=== PATIENT | female | born 1930 | race Caucasian/White ===

== ENCOUNTER 2016-10-18 20:45 | Emergency (ER) | payer MEDICARE, BC ==
[~2016-10-18] VITALS: Ht 165.1 cm; Wt 105.0 kg
[~2016-10-18 20:45] MED LIST: ACTONEL35 MG OR; ADVAIR DISKU IN; ALBUTEROL SUL0.083 % IN; ALBUTEROL0.083 % IN; ALBUTEROL0.5 % IN; ASPIRIN EC81 MG PO; AVAPRO300 MG OR; AVELOX400 MG OR; BACTRIM DS1 TAB PO; CALCIUM600 M2 PO; CIPRO500 MG OR; CLARITIN10 MG OR; GLYBURIDE2.5 MG OR; LANTUS100 MG/ML SC; LASIX 20 MG TAB20 MG PO; LIPITOR20 MG OR; LOPRESSOR50 MG OR; LOSARTAN POT100 MG PO; MEDDOSEPAK PO; METFORMIN500 M1 OR; METOPROLOL50 MG OR; NIFEDICAL XL30 MG OR; PROAIR HFA IN; PROVENTIL INH17 GM IN; RANITIDINE150 MG OR; THEO-24200 MG OR; THEO-24400 MG OR; ULTRAM50 M1 PO; ZANTAC150 MG OR
--- NOTE | 2016-10-18 21:27 | NUR ---
BREATHING TREATMENT GIVEN. EXPLANATION GIVEN IN HOW TO BREATH DEEPLY FOR GOOD DEPOSITION TO THE LUNGS.
[2016-10-18 21:30] LABS: HEMATOCRIT 36.9 % (37.0-47.0); IMMATURE GRANULOCYTES 0.4 % (0.0-1.0); MEAN CELL VOLUME 85.2 fL CALC (80.0-100.0); MEAN CORPUSCULAR HGB 27.7 pG CALC (26.0-32.0); MEAN CORPUSCULAR HGB CONC 32.5 g/L CALC (32.0-36.0); NEUT# 6.82 thou/uL (2.00-7.15); RED BLOOD COUNT 4.33 mill/uL (4.20-5.60); RED CELL DISTRI WIDTH 13.9 % (11.5-15.5)
[2016-10-18 21:48] LABS: ALBUMIN 3.9 g/dL (3.2-5.0); ALKALINE PHOSPHATASE 69 u/l (38-126); ANION GAP 15 (6-22 (CALC)); BILIRUBIN, TOTAL 0.8 mg/dL (0.0-1.4); BUN 23 mg/dL (8-23); BUN/CREATININE RATIO 27 (12-20 (CALC)); CALCIUM 9.1 mg/dL (8.4-10.2); CARBON DIOXIDE 24 mmol/l (22-30); CHLORIDE 99 mmol/l (95-108); CREATININE 0.9 mg/dL (0.5-1.0); GFR 60 ML/MIN (>=60 (CALC)); GFR FOR AFR.AMER. > 60 ML/MIN (>=60 (CALC)); GLUCOSE 338 mg/dL (82-115); INTERNATIONAL NORMALIZED RATIO 0.9 RATIO (0.7-1.3); POTASSIUM 4.9 mmol/l (3.5-5.1); PROTHROMBIN TIME 10.2 SECONDS (9.0-12.5); SGOT/AST 27 u/l (9-36); SGPT/ALT 26 u/l (11-66); SODIUM 133 mmol/l (137-146); TOTAL PROTEIN 7.4 g/dL (6.3-8.2)
[2016-10-18 22:01] LABS: MYOGLOBIN 53 ng/mL (0 - 62)
[2016-10-18 22:04] LABS: URINE BILIRUBIN - DIPSTICK NEGATIVE (NEGATIVE); URINE BLOOD DIPSTICK NEGATIVE (NEGATIVE); URINE COLOR YELLOW; URINE GLUCOSE - DIPSTICK 500 mg/dL (NEGATIVE); URINE KETONE TRACE mg/dL (NEGATIVE); URINE NITRITE - DIPSTICK NEGATIVE (Negative); URINE PROTEIN - DIPSTICK 30 mg/dL (NEG-TRACE); URINE UROBILINOGEN - DIPSTICK 0.2 E.U./dL (0.2)
[2016-10-18 22:06] LABS: URINE CLARITY SLIGHT CLOUDY; URINE LEUK ESTERASE MODERATE (NEGATIVE)
[2016-10-18 22:14] LABS: URINE SQUAMOUS EPITHELIAL CELL MODERATE EPI/hpf (0-FEW); URINE WBC 20-50 WBC/hpf (0-5)
[2016-10-18] MEDS ORDERED: CEPHALEXIN500 MG PO (23:26)
[2016-10-19 00:09] VITALS: BP 139/70
== END 2016-10-19 00:02 | disposition home or self-care (01) ==
LOC: ED 20:45
PROVIDERS: Emergency Medicine
DX: N39.0 Urinary tract infection, site not specified (principal); J44.9 Chronic obstructive pulmonary disease, unspecified; J45.909 Unspecified asthma, uncomplicated; I11.0 Hypertensive heart disease with heart failure; I50.9 Heart failure, unspecified; E11.9 Type 2 diabetes mellitus without complications; R06.02 Shortness of breath

== ENCOUNTER 2016-10-24 13:28 | Observation (INO) | payer MEDICARE, BC ==
[~2016-10-24] VITALS: Ht 165.1 cm; Wt 85.3 kg
[~2016-10-24 13:28] MED LIST changes: +CEPHALEXIN500 MG PO
--- NOTE | 2016-10-24 13:44 | NUR ---
PT ARRIVES BY EMS FOR INCREASED SOB LATELY. SHE DOES NOT WEAR OXYGEN AT HOME.
[2016-10-24 14:48] LABS: HEMATOCRIT 38.8 % (37.0-47.0); HEMOGLOBIN 12.5 g/dl (12.0-16.0); IMMATURE GRANULOCYTES 0.3 % (0.0-1.0); MEAN CORPUSCULAR HGB 27.7 pG CALC (26.0-32.0); MEAN CORPUSCULAR HGB CONC 32.2 g/L CALC (32.0-36.0); NEUT# 7.73 thou/uL (2.00-7.15); RED BLOOD COUNT 4.51 mill/uL (4.20-5.60); RED CELL DISTRI WIDTH 14.1 % (11.5-15.5)
--- NOTE | 2016-10-24 14:54 | NUR ---
PT IS UNABLE TO PROVIDE LIST OF MEDICATIONS AND LAST TIME THAT SHE TOOK THEM. PT DEFERS THIS TO HER DAUGHTER, WHO HAS NOT APPEARED HERE YET.
[2016-10-24 15:08] LABS: ALBUMIN 3.8 g/dL (3.2-5.0); ALKALINE PHOSPHATASE 78 u/l (38-126); ANION GAP 17 (6-22 (CALC)); BILIRUBIN, TOTAL 0.5 mg/dL (0.0-1.4); BUN 28 mg/dL (8-23); BUN/CREATININE RATIO 31 (12-20 (CALC)); CALCIUM 9.4 mg/dL (8.4-10.2); CARBON DIOXIDE 27 mmol/l (22-30); CHLORIDE 98 mmol/l (95-108); CREATININE 0.9 mg/dL (0.5-1.0); GFR 60 ML/MIN (>=60 (CALC)); GFR FOR AFR.AMER. > 60 ML/MIN (>=60 (CALC)); GLUCOSE 389 mg/dL (82-115); POTASSIUM 4.8 mmol/l (3.5-5.1); SGOT/AST 21 u/l (9-36); SGPT/ALT 25 u/l (11-66); SODIUM 137 mmol/l (137-146); TOTAL PROTEIN 6.6 g/dL (6.3-8.2)
[2016-10-24 15:21] LABS: MYOGLOBIN 66 ng/mL (0 - 62)
[2016-10-24 15:29] LABS: URINE BILIRUBIN - DIPSTICK NEGATIVE (NEGATIVE); URINE BLOOD DIPSTICK NEGATIVE (NEGATIVE); URINE CLARITY CLEAR; URINE COLOR YELLOW; URINE GLUCOSE - DIPSTICK >=1000 mg/dL (NEGATIVE); URINE KETONE TRACE mg/dL (NEGATIVE); URINE LEUK ESTERASE NEGATIVE (NEGATIVE); URINE NITRITE - DIPSTICK NEGATIVE (Negative); URINE PH 5.5 (4.5-8.0); URINE PROTEIN - DIPSTICK TRACE mg/dL (NEG-TRACE); URINE UROBILINOGEN - DIPSTICK 0.2 E.U./dL (0.2)
--- NOTE | 2016-10-24 16:16 | NUR ---
PT AWARE OF PENDING ADMISSION, RESTS IN THE STRETCHER IN NO ACUTE DISTRESS. PHONE CALLS TO DTR AND GRANDDAUGHTER UNANSWERED, UNABLE TO RECONCILE MEDICATION RECONCILIATION.
--- NOTE | 2016-10-24 16:38 | NUR ---
PTS DAUGHTER WILL GET HOME MEDICATION LIST.
--- NOTE | 2016-10-24 16:49 | NUR ---
PT TAKEN TO ROOM 280 WITHOUT INCIDENT, REPORT WAS TO KARLI.
[2016-10-24 16:57] VITALS: BP 141/79
[2016-10-24] MEDS ORDERED: LASIX 20 MG20 MG/TAB PO (17:33)
[2016-10-24] MEDS ORDERED: CALCIUM600 M3 PO (17:33)
[2016-10-24] MEDS ORDERED: ASPIRIN81 MG PO (17:33)
[2016-10-24] MEDS ORDERED: LIPITOR20 MG PO (17:33)
--- NOTE | 2016-10-24 17:33 | NUR ---
REPORT FROM PREMA IN ED, PT ARRIVED ON UNIT VIA STRETCHER AND TRANSFERRED TO BED, ALERT AND ORIENTED TO PLACE AND PERSON, ORIENTED TO ROOM AND CALL [facility], DENIES PAIN AT THIS TIME, C/O OF BEING HUNGRY, FED, TELE MONITOR IN PLACE, WILL CONTINUE TO MONITOR.
[2016-10-24] MEDS ORDERED: RANITIDINE150 M1 PO (17:34)
[2016-10-24] MEDS ORDERED: LOSARTAN POTASS50 MG PO (17:34)
[2016-10-24] MEDS ORDERED: LANTUS100 UNIT/M SC (17:35)
--- NOTE | 2016-10-24 17:35 | NUR ---
PT'S DAUGHTER CALLED WITH MED LIST. HOME MEDICATIONS RECONCILED
[2016-10-24 18:52] VITALS: BP 117/64
--- NOTE | 2016-10-24 19:00 | NUR ---
RECEIVED SHIFT REPORT FROM DICK CALVILLO. PATIENT LAYING IN BED AND APPEARS NOT TO BE IN ANY ACUTE DISTRESS OR DISCOMFORT. WILL CONTINUE TO MONITOR.
--- NOTE | 2016-10-24 22:00 | NUR ---
ASSISTED PATIENT TO BATHROOM. PT VOIDED INTO THE TOILET. DENIES CP AT THIS TIME. WILL CONTINUE TO MONITOR.
--- NOTE | 2016-10-25 | NUR ---
PT LAYING IN BED AND APPEARS TO BE SLEEPING. NO ACUTE DISTRESS NOTED.
[2016-10-25 00:05] VITALS: BP 120/62
[2016-10-25 04:06] VITALS: BP 126/71
[2016-10-25 06:10] LABS: HEMATOCRIT 36.2 % (37.0-47.0); IMMATURE GRANULOCYTES 0.4 % (0.0-1.0); MEAN CELL VOLUME 85.6 fL CALC (80.0-100.0); MEAN CORPUSCULAR HGB 28.4 pG CALC (26.0-32.0); MEAN CORPUSCULAR HGB CONC 33.1 g/L CALC (32.0-36.0); NEUT# 6.27 thou/uL (2.00-7.15); RED BLOOD COUNT 4.23 mill/uL (4.20-5.60); RED CELL DISTRI WIDTH 14.1 % (11.5-15.5)
[2016-10-25 06:31] LABS: ANION GAP 13 (6-22 (CALC)); BUN 25 mg/dL (8-23); BUN/CREATININE RATIO 31 (12-20 (CALC)); CALCIUM 9.3 mg/dL (8.4-10.2); CALCULATED LDLCHOLESTEROL 80 mg/dL (62-129 (CALC)); CARBON DIOXIDE 29 mmol/l (22-30); CHLORIDE 101 mmol/l (95-108); CREATININE 0.8 mg/dL (0.5-1.0); GFR > 60 ML/MIN (>=60 (CALC)); GFR FOR AFR.AMER. > 60 ML/MIN (>=60 (CALC)); GLUCOSE 234 mg/dL (82-115); HDL CHOLESTEROL 67 mg/dL (>=40); POTASSIUM 4.5 mmol/l (3.5-5.1); SODIUM 137 mmol/l (137-146); TOTAL CHOLESTEROL 166 mg/dl (0-199); TOTAL TRIGLYCERIDES 95 mg/dl (30-149); VLDL CHOLESTROL 19 mg/dl (0-48 (CALC))
--- NOTE | 2016-10-25 07:50 | NUR ---
ASSESSMENT IS COMPLETED; NO DISTRESS NOTED. IV SITE IS FREE FROM REDNESS OR EDEMA. TELE MONITOR IN PLACE. CONTINUE TO OSBERVE AND MONITOR.
[2016-10-25 08:45] VITALS: BP 102/39
[2016-10-25 11:24] VITALS: BP 121/59
--- NOTE | 2016-10-25 12:00 | NUR ---
PT IS RELAXING IN BED WITH MINIMAL DISTRESS NOTED. IV SITE IS FREE FROM REDNESS OR EDEMA. TELE MONITOR REMAINS IN PLACE. PT C/O MIDSTERNAL CHEST DISCOMFORT. CONTINUE TO OBSERVE AND MONITOR.
--- NOTE | 2016-10-25 16:00 | NUR ---
DISCHARGE INSTRUCTIONS GIVEN TO PT AND GRAND DAUGHTER., IV SITE DISCONTINUED, CATHETER INTACT,CONTINUE TO OSBERVE AND MONITOR.
--- NOTE | 2016-10-25 16:27 | NUR ---
DISCHARGE INSTRUCTIONS GIVEN AND VERBALIZED UNDERSTANDING.,
== END 2016-10-25 15:49 ==
LOC: ENPENDDIS → ED 13:28 → ED-I 15:50 → ED 16:06 → MS2 16:07
PROVIDERS: Emergency Medicine; ADMIT Internal Medicine; ATTEND Internal Medicine
DX: R07.89 Other chest pain (principal); I11.0 Hypertensive heart disease with heart failure; I50.9 Heart failure, unspecified; E11.65 Type 2 diabetes mellitus with hyperglycemia; F03.90 Unspecified dementia, unspecified severity, without behavioral disturbance, psychotic disturbance, mood disturbance, and anxiety; K21.9 Gastro-esophageal reflux disease without esophagitis; R06.02 Shortness of breath; Z79.4 Long term (current) use of insulin

== ENCOUNTER 2016-11-01 22:38 | Emergency (ER) | payer MEDICARE, BC ==
[~2016-11-01] VITALS: Ht 165.1 cm; Wt 100.0 kg
[~2016-11-01 22:38] MED LIST changes: +ASPIRIN81 MG PO; +CALCIUM600 M3 PO; +LANTUS100 UNIT/M SC; +LASIX 20 MG20 MG/TAB PO; +LIPITOR20 MG PO; +LOSARTAN POTASS50 MG PO; +RANITIDINE150 M1 PO
[2016-11-01 23:24] LABS: HEMATOCRIT 36.1 % (37.0-47.0); IMMATURE GRANULOCYTES 0.4 % (0.0-1.0); MEAN CELL VOLUME 85.3 fL CALC (80.0-100.0); MEAN CORPUSCULAR HGB 28.4 pG CALC (26.0-32.0); MEAN CORPUSCULAR HGB CONC 33.2 g/L CALC (32.0-36.0); NEUT# 7.21 thou/uL (2.00-7.15); RED BLOOD COUNT 4.23 mill/uL (4.20-5.60); RED CELL DISTRI WIDTH 14.3 % (11.5-15.5)
[2016-11-01 23:30] LABS: ALBUMIN 3.9 g/dL (3.2-5.0); ALKALINE PHOSPHATASE 71 u/l (38-126); ANION GAP 15 (6-22 (CALC)); BILIRUBIN, TOTAL 0.4 mg/dL (0.0-1.4); BUN 25 mg/dL (8-23); BUN/CREATININE RATIO 28 (12-20 (CALC)); CALCIUM 9.2 mg/dL (8.4-10.2); CARBON DIOXIDE 26 mmol/l (22-30); CHLORIDE 100 mmol/l (95-108); CREATININE 0.9 mg/dL (0.5-1.0); GFR 60 ML/MIN (>=60 (CALC)); GFR FOR AFR.AMER. > 60 ML/MIN (>=60 (CALC)); GLUCOSE 285 mg/dL (82-115); POTASSIUM 4.1 mmol/l (3.5-5.1); SGOT/AST 24 u/l (9-36); SGPT/ALT 32 u/l (11-66); SODIUM 136 mmol/l (137-146); TOTAL PROTEIN 6.9 g/dL (6.3-8.2)
[2016-11-01 23:42] LABS: MYOGLOBIN 57 ng/mL (0 - 62)
[2016-11-02 03:01] LABS: URINE BILIRUBIN - DIPSTICK NEGATIVE (NEGATIVE); URINE BLOOD DIPSTICK MODERATE (NEGATIVE); URINE CLARITY CLOUDY; URINE COLOR YELLOW; URINE GLUCOSE - DIPSTICK NEGATIVE (NEGATIVE); URINE KETONE TRACE mg/dL (NEGATIVE); URINE NITRITE - DIPSTICK NEGATIVE (Negative); URINE PH 5.5 (4.5-8.0); URINE PROTEIN - DIPSTICK 30 mg/dL (NEG-TRACE); URINE SPECIFIC GRAVITY 1.025; URINE UROBILINOGEN - DIPSTICK 0.2 E.U./dL (0.2)
[2016-11-02 03:03] LABS: URINE BACTERIA FEW hpf; URINE LEUK ESTERASE LARGE (NEGATIVE); URINE SQUAMOUS EPITHELIAL CELL MANY EPI/hpf (0-FEW); URINE WBC 50-100 WBC/hpf (0-5)
[2016-11-02 03:04] LABS: URINE MUCUS MODERATE hpf (NONE-FEW)
[2016-11-02] MEDS ORDERED: CIPROFLOXACN500 MG PO (03:34)
[2016-11-02 05:11] VITALS: BP 107/60
== END 2016-11-02 04:20 | disposition home or self-care (01) ==
LOC: ED 22:38
PROVIDERS: Emergency Medicine
DX: R07.9 Chest pain, unspecified (principal); N39.0 Urinary tract infection, site not specified; J44.9 Chronic obstructive pulmonary disease, unspecified; J45.909 Unspecified asthma, uncomplicated; I11.0 Hypertensive heart disease with heart failure; I50.9 Heart failure, unspecified; E11.9 Type 2 diabetes mellitus without complications
CPT/HCPCS: J1956

== ENCOUNTER 2018-02-21 18:34 | Emergency (ER) | payer MEDICARE, BC ==
[~2018-02-21] VITALS: Ht 165.1 cm; Wt 86.4 kg
[~2018-02-21 18:34] MED LIST changes: +CIPROFLOXACN500 MG PO
[2018-02-21 20:28] VITALS: BP 133/80
== END 2018-02-21 20:28 | disposition home or self-care (01) ==
LOC: ED 18:34
DX: M25.512 Pain in left shoulder (principal); M25.511 Pain in right shoulder; E11.9 Type 2 diabetes mellitus without complications; W01.0XXA Fall on same level from slipping, tripping and stumbling without subsequent striking against object, initial encounter; Y92.000 Kitchen of unspecified non-institutional (private) residence as the place of occurrence of the external cause

== ENCOUNTER 2018-04-27 18:51 | Emergency (ER) | payer MEDICARE, BC ==
[~2018-04-27] VITALS: Ht 165.1 cm; Wt 118.0 kg
--- NOTE | 2018-04-27 19:17 | NUR ---
BREATHING TREATMENT GIVEN USING A FACE MASK. BREATHING TECH. FOR GOOD DEPOSITION TO THE LUNGS.
[2018-04-27 19:30] LABS: HEMATOCRIT 35.7 % (37.0-47.0); HEMOGLOBIN 11.1 g/dl (12.0-16.0); IMMATURE GRANULOCYTES 0.5 % (0.0-5.0); MEAN CELL VOLUME 87.1 fL CALC (80.0-100.0); MEAN CORPUSCULAR HGB 27.1 pG CALC (26.0-32.0); MEAN CORPUSCULAR HGB CONC 31.1 g/L CALC (32.0-36.0); NEUT# 10.75 thou/uL (2.00-7.15); RED BLOOD COUNT 4.1 mill/uL (4.20-5.60); RED CELL DISTRI WIDTH 14.7 % (11.5-15.5)
[2018-04-27 19:42] LABS: ALBUMIN 3.5 g/dL (3.2-5.0); BILIRUBIN, TOTAL 0.6 mg/dL (0.0-1.4); CREATININE 1.1 mg/dL (0.5-1.0); POTASSIUM 3.6 mmol/l (3.5-5.1)
[2018-04-27 19:49] LABS: D-DIMER 2.24 mg/L (0.19-0.60); PROTHROMBIN TIME 10.2 SECONDS (9.0-12.5)
[2018-04-27 23:57] LABS: URINE BILIRUBIN - DIPSTICK NEGATIVE (NEGATIVE); URINE BLOOD DIPSTICK NEGATIVE (NEGATIVE); URINE CLARITY CLEAR; URINE COLOR YELLOW; URINE GLUCOSE - DIPSTICK NEGATIVE (NEGATIVE); URINE KETONE NEGATIVE (NEGATIVE); URINE LEUK ESTERASE NEGATIVE (NEGATIVE); URINE NITRITE - DIPSTICK NEGATIVE (Negative); URINE PROTEIN - DIPSTICK TRACE mg/dL (NEG-TRACE); URINE UROBILINOGEN - DIPSTICK 0.2 E.U./dL (0.2)
[2018-04-28] MEDS ORDERED: DOXYCYCL HYC100 MG PO (00:10)
[2018-04-28 00:45] VITALS: BP 147/67
== END 2018-04-28 00:45 | disposition home or self-care (01) ==
LOC: ED 18:51
PROVIDERS: Family Medicine
DX: L03.115 Cellulitis of right lower limb (principal); E11.65 Type 2 diabetes mellitus with hyperglycemia; F03.90 Unspecified dementia, unspecified severity, without behavioral disturbance, psychotic disturbance, mood disturbance, and anxiety
CPT/HCPCS: Q9967

== ENCOUNTER 2018-05-06 08:08 | Inpatient (IN) | payer MEDICARE, BC ==
[~2018-05-06] VITALS: Ht 157.5 cm; Wt 90.0 kg
[2018-05-06] VITALS (14 sets, daily range): BP systolic 109–169; BP diastolic 52–77
[~2018-05-06 08:08] MED LIST changes: +DOXYCYCL HYC100 MG PO
[2018-05-06] MEDS ORDERED: PROAIR HFA IN (10:03)
[2018-05-06] MEDS ORDERED: METFORMIN500 M1 PO (10:04)
[2018-05-06] MEDS ORDERED: ARICEPT PO (10:05)
[2018-05-06 10:43] LABS: HEMOGLOBIN 10.9 g/dl (12.0-16.0); IMMATURE GRANULOCYTES 0.8 % (0.0-5.0); MEAN CELL VOLUME 86.4 fL CALC (80.0-100.0); MEAN CORPUSCULAR HGB 26.9 pG CALC (26.0-32.0); MEAN CORPUSCULAR HGB CONC 31.1 g/L CALC (32.0-36.0); NEUT# 5.23 thou/uL (2.00-7.15); RED BLOOD COUNT 4.05 mill/uL (4.20-5.60); RED CELL DISTRI WIDTH 15.1 % (11.5-15.5)
[2018-05-06 11:10] LABS: ALBUMIN 3.1 g/dL (3.2-5.0); ALKALINE PHOSPHATASE 62 u/l (38-126); ANION GAP 9 (6-22 (CALC)); BILIRUBIN, TOTAL 0.6 mg/dL (0.0-1.4); BUN 17 mg/dL (8-23); BUN/CREATININE RATIO 24 (12-20 (CALC)); CARBON DIOXIDE 34 mmol/l (22-30); CHLORIDE 103 mmol/l (95-108); CREATININE 0.7 mg/dL (0.5-1.0); GFR > 60 ML/MIN (>=60 (CALC)); GFR FOR AFR.AMER. > 60 ML/MIN (>=60 (CALC)); MAGNESIUM 1.5 mg/dL (1.6-2.3); POTASSIUM 4.3 mmol/l (3.5-5.1); SGOT/AST 28 u/l (9-36); SODIUM 141 mmol/l (137-146); TOTAL PROTEIN 6.1 g/dL (6.3-8.2)
[2018-05-06 18:45] LABS: URINE BILIRUBIN - DIPSTICK NEGATIVE (NEGATIVE); URINE BLOOD DIPSTICK NEGATIVE (NEGATIVE); URINE COLOR YELLOW; URINE GLUCOSE - DIPSTICK NEGATIVE (NEGATIVE); URINE KETONE TRACE mg/dL (NEGATIVE); URINE LEUK ESTERASE SMALL (Negative); URINE NITRITE - DIPSTICK NEGATIVE (Negative); URINE PROTEIN - DIPSTICK 30 mg/dL (NEG-TRACE); URINE SPECIFIC GRAVITY 1.025; URINE UROBILINOGEN - DIPSTICK 0.2 E.U./dL (0.2)
[2018-05-06 18:49] LABS: URINE CLARITY CLEAR
[2018-05-06 19:27] LABS: URINE SQUAMOUS EPITHELIAL CELL FEW EPI/hpf (0-FEW)
[2018-05-07] VITALS (7 sets, daily range): BP systolic 113–140; BP diastolic 61–82
[2018-05-08 00:08] VITALS: BP 90/42
[2018-05-08 05:03] VITALS: BP 112/61
[2018-05-08 05:32] LABS: HEMATOCRIT 33.9 % (37.0-47.0); HEMOGLOBIN 10.2 g/dl (12.0-16.0); IMMATURE GRANULOCYTES 0.6 % (0.0-5.0); MEAN CELL VOLUME 89.4 fL CALC (80.0-100.0); MEAN CORPUSCULAR HGB 26.9 pG CALC (26.0-32.0); MEAN CORPUSCULAR HGB CONC 30.1 g/L CALC (32.0-36.0); NEUT# 6.83 thou/uL (2.00-7.15); RED BLOOD COUNT 3.79 mill/uL (4.20-5.60); RED CELL DISTRI WIDTH 15.3 % (11.5-15.5)
[2018-05-08 06:01] LABS: ALBUMIN 2.6 g/dL (3.2-5.0); BILIRUBIN, TOTAL 0.4 mg/dL (0.0-1.4); CREATININE 1.1 mg/dL (0.5-1.0); MAGNESIUM 1.5 mg/dL (1.6-2.3); POTASSIUM 4.2 mmol/l (3.5-5.1); TOTAL PROTEIN 5.2 g/dL (6.3-8.2)
[2018-05-08 08:32] VITALS: BP 121/46
[2018-05-08 11:48] VITALS: BP 122/45
[2018-05-08 15:15] VITALS: BP 119/56
[2018-05-08 19:46] VITALS: BP 99/48
[2018-05-09 00:44] VITALS: BP 114/57
[2018-05-09 04:25] VITALS: BP 130/73
[2018-05-09 05:07] LABS: HEMATOCRIT 31.4 % (37.0-47.0); HEMOGLOBIN 9.5 g/dl (12.0-16.0); IMMATURE GRANULOCYTES 0.5 % (0.0-5.0); MEAN CORPUSCULAR HGB 26.9 pG CALC (26.0-32.0); MEAN CORPUSCULAR HGB CONC 30.3 g/L CALC (32.0-36.0); NEUT# 7.15 thou/uL (2.00-7.15); RED BLOOD COUNT 3.53 mill/uL (4.20-5.60); RED CELL DISTRI WIDTH 15.4 % (11.5-15.5)
[2018-05-09 05:36] LABS: ALBUMIN 2.7 g/dL (3.2-5.0); ALKALINE PHOSPHATASE 61 u/l (38-126); ANION GAP 11 (6-22 (CALC)); BILIRUBIN, TOTAL 0.3 mg/dL (0.0-1.4); BUN 31 mg/dL (8-23); BUN/CREATININE RATIO 36 (12-20 (CALC)); CARBON DIOXIDE 28 mmol/l (22-30); CHLORIDE 102 mmol/l (95-108); CREATININE 0.9 mg/dL (0.5-1.0); GFR 59 ML/MIN (>=60 (CALC)); GFR FOR AFR.AMER. > 60 ML/MIN (>=60 (CALC)); MAGNESIUM 1.6 mg/dL (1.6-2.3); POTASSIUM 4.7 mmol/l (3.5-5.1); SGOT/AST 17 u/l (9-36); SODIUM 136 mmol/l (137-146); TOTAL PROTEIN 5.4 g/dL (6.3-8.2)
[2018-05-09 07:28] VITALS: BP 125/61
[2018-05-09 11:45] VITALS: BP 131/42
[2018-05-09 15:53] VITALS: BP 104/50
[2018-05-09 19:29] VITALS: BP 131/66
[2018-05-10 00:17] VITALS: BP 114/50
[2018-05-10 04:35] VITALS: BP 130/57
[2018-05-10 05:57] LABS: HEMATOCRIT 33.4 % (37.0-47.0); HEMOGLOBIN 10.1 g/dl (12.0-16.0); IMMATURE GRANULOCYTES 0.3 % (0.0-5.0); MEAN CELL VOLUME 89.1 fL CALC (80.0-100.0); MEAN CORPUSCULAR HGB 26.9 pG CALC (26.0-32.0); MEAN CORPUSCULAR HGB CONC 30.2 g/L CALC (32.0-36.0); NEUT# 6.72 thou/uL (2.00-7.15); RED BLOOD COUNT 3.75 mill/uL (4.20-5.60); RED CELL DISTRI WIDTH 15.4 % (11.5-15.5)
[2018-05-10 06:16] LABS: ALBUMIN 2.7 g/dL (3.2-5.0); ALKALINE PHOSPHATASE 66 u/l (38-126); ANION GAP 10 (6-22 (CALC)); BILIRUBIN, TOTAL 0.4 mg/dL (0.0-1.4); BUN 29 mg/dL (8-23); BUN/CREATININE RATIO 33 (12-20 (CALC)); CARBON DIOXIDE 31 mmol/l (22-30); CHLORIDE 102 mmol/l (95-108); CREATININE 0.9 mg/dL (0.5-1.0); GFR 59 ML/MIN (>=60 (CALC)); GFR FOR AFR.AMER. > 60 ML/MIN (>=60 (CALC)); MAGNESIUM 1.9 mg/dL (1.6-2.3); POTASSIUM 5.1 mmol/l (3.5-5.1); SGOT/AST 17 u/l (9-36); SODIUM 138 mmol/l (137-146); TOTAL PROTEIN 5.5 g/dL (6.3-8.2)
[2018-05-10 07:55] VITALS: BP 125/57
[2018-05-10 11:20] VITALS: BP 140/66
[2018-05-10] MEDS ORDERED: IPRATROPIU0.5 MG/3 M IN (15:40)
[2018-05-10] MEDS ORDERED: DOXYCYCLINE100 MG PO (15:46)
[2018-05-10 16:00] VITALS: BP 152/78
[2018-05-10 19:35] VITALS: BP 124/74
[2018-05-11 00:05] VITALS: BP 139/70
[2018-05-11 05:28] VITALS: BP 120/65
[2018-05-11 07:36] VITALS: BP 138/70
[2018-05-11 10:17] VITALS: BP 125/63
== END 2018-05-11 11:45 | DRG 689 ==
LOC: ICU 08:08 → MS2 08:08 → ICU 11:11 → MS2 05-07 01:09
PROVIDERS: ADMIT Internal Medicine; ATTEND Internal Medicine Nephrology
PROC: 3E02340 Introduction of Influenza Vaccine into Muscle, Percutaneous Approach (ICD-10-PCS; principal; 2018-05-10)
PROC: 3E0234Z Introduction of Serum, Toxoid and Vaccine into Muscle, Percutaneous Approach (ICD-10-PCS; 2018-05-10)
DX: N39.0 Urinary tract infection, site not specified (principal); J18.9 Pneumonia, unspecified organism; J44.0 Chronic obstructive pulmonary disease with (acute) lower respiratory infection; E11.40 Type 2 diabetes mellitus with diabetic neuropathy, unspecified; I10 Essential (primary) hypertension; E78.5 Hyperlipidemia, unspecified; E03.9 Hypothyroidism, unspecified; S31.821A Laceration without foreign body of left buttock, initial encounter; D64.9 Anemia, unspecified; I51.7 Cardiomegaly; F03.90 Unspecified dementia, unspecified severity, without behavioral disturbance, psychotic disturbance, mood disturbance, and anxiety; B96.20 Unspecified Escherichia coli [E. coli] as the cause of diseases classified elsewhere; W19.XXXA Unspecified fall, initial encounter; Z23 Encounter for immunization

== ENCOUNTER 2018-06-29 15:45 | Inpatient (IN) | payer MEDICARE, BC ==
[~2018-06-29] VITALS: Ht 157.5 cm; Wt 83.1 kg
[~2018-06-29 15:45] MED LIST changes: +ARICEPT PO; +DOXYCYCLINE100 MG PO; +IPRATROPIU0.5 MG/3 M IN; +METFORMIN500 M1 PO
[2018-06-29 16:27] LABS: HEMATOCRIT 34.2 % (37.0-47.0); HEMOGLOBIN 10.4 g/dl (12.0-16.0); IMMATURE GRANULOCYTES 0.7 % (0.0-5.0); MEAN CELL VOLUME 86.1 fL CALC (80.0-100.0); MEAN CORPUSCULAR HGB 26.2 pG CALC (26.0-32.0); MEAN CORPUSCULAR HGB CONC 30.4 g/L CALC (32.0-36.0); NEUT# 6.16 thou/uL (2.00-7.15); RED BLOOD COUNT 3.97 mill/uL (4.20-5.60)
[2018-06-29 18:14] LABS: ALKALINE PHOSPHATASE 68 u/l (38-126); BILIRUBIN, TOTAL 0.3 mg/dL (0.0-1.4); BUN 39 mg/dL (8-23); BUN/CREATININE RATIO 48 (12-20 (CALC)); CARBON DIOXIDE 24 mmol/l (22-30); CHLORIDE 98 mmol/l (95-108); CREATININE 0.8 mg/dL (0.5-1.0); GFR > 60 ML/MIN (>=60 (CALC)); GFR FOR AFR.AMER. > 60 ML/MIN (>=60 (CALC)); SODIUM 135 mmol/l (137-146)
[2018-06-29 18:15] LABS: ALBUMIN 4.2 g/dL (3.2-5.0); ANION GAP 19 (6-22 (CALC)); POTASSIUM 5.8 mmol/l (3.5-5.1); SGOT/AST 34 u/l (9-36); TOTAL PROTEIN 7.7 g/dL (6.3-8.2)
[2018-06-29] MEDS ORDERED: KLOR-CON M2020 MEQ PO (18:21)
[2018-06-29] MEDS ORDERED: LASIX 40 MG40 MG/TAB PO (18:21)
[2018-06-29] MEDS ORDERED: VITAMIN D1000 UNI1 PO (18:24)
[2018-06-29 18:45] LABS: URINE BILIRUBIN - DIPSTICK NEGATIVE (NEGATIVE); URINE BLOOD DIPSTICK NEGATIVE (NEGATIVE); URINE COLOR YELLOW; URINE GLUCOSE - DIPSTICK NEGATIVE (NEGATIVE); URINE KETONE NEGATIVE (NEGATIVE); URINE LEUK ESTERASE NEGATIVE (NEGATIVE); URINE NITRITE - DIPSTICK NEGATIVE (Negative); URINE PROTEIN - DIPSTICK TRACE mg/dL (NEG-TRACE); URINE UROBILINOGEN - DIPSTICK 0.2 E.U./dL (0.2)
[2018-06-29 20:05] VITALS: BP 72/42; BP 80/40
[2018-06-29 20:20] VITALS: BP 112/60
[2018-06-29 20:30] VITALS: BP 102/64
[2018-06-29 21:12] LABS: POTASSIUM 5.7 mmol/l (3.5-5.1)
[2018-06-29 22:00] VITALS: BP 105/55
[2018-06-30] VITALS (20 sets, daily range): BP systolic 84–133; BP diastolic 40–69
[2018-06-30 05:56] LABS: HEMOGLOBIN 10.3 g/dl (12.0-16.0); MEAN CORPUSCULAR HGB 26.2 pG CALC (26.0-32.0); MEAN CORPUSCULAR HGB CONC 31.2 g/L CALC (32.0-36.0); RED BLOOD COUNT 3.93 mill/uL (4.20-5.60); RED CELL DISTRI WIDTH 14.9 % (11.5-15.5)
[2018-06-30 06:20] LABS: ANION GAP 17 (6-22 (CALC)); BUN 42 mg/dL (8-23); BUN/CREATININE RATIO 48 (12-20 (CALC)); CARBON DIOXIDE 27 mmol/l (22-30); CHLORIDE 100 mmol/l (95-108); CREATININE 0.9 mg/dL (0.5-1.0); GFR 59 ML/MIN (>=60 (CALC)); GFR FOR AFR.AMER. > 60 ML/MIN (>=60 (CALC)); POTASSIUM 4.9 mmol/l (3.5-5.1); SODIUM 139 mmol/l (137-146)
[2018-07-01] VITALS (18 sets, daily range): BP systolic 90–152; BP diastolic 35–58
[2018-07-01 04:06] LABS: HEMATOCRIT 33.6 % (37.0-47.0); HEMOGLOBIN 10.1 g/dl (12.0-16.0); IMMATURE GRANULOCYTES 0.4 % (0.0-5.0); MEAN CELL VOLUME 85.9 fL CALC (80.0-100.0); MEAN CORPUSCULAR HGB 25.8 pG CALC (26.0-32.0); MEAN CORPUSCULAR HGB CONC 30.1 g/L CALC (32.0-36.0); NEUT# 6.15 thou/uL (2.00-7.15); RED BLOOD COUNT 3.91 mill/uL (4.20-5.60)
[2018-07-01 04:27] LABS: ALBUMIN 3.7 g/dL (3.2-5.0); ALKALINE PHOSPHATASE 65 u/l (38-126); AMYLASE 48 u/l (30-110); ANION GAP 16 (6-22 (CALC)); BILIRUBIN, TOTAL 0.3 mg/dL (0.0-1.4); BUN 51 mg/dL (8-23); BUN/CREATININE RATIO 66 (12-20 (CALC)); CARBON DIOXIDE 28 mmol/l (22-30); CHLORIDE 100 mmol/l (95-108); CREATININE 0.8 mg/dL (0.5-1.0); GFR > 60 ML/MIN (>=60 (CALC)); GFR FOR AFR.AMER. > 60 ML/MIN (>=60 (CALC)); LIPASE 232 u/l (23-300); SGOT/AST 31 u/l (9-36); SODIUM 139 mmol/l (137-146); TOTAL PROTEIN 6.7 g/dL (6.3-8.2)
[2018-07-02] VITALS: BP 106/51
[2018-07-02 04:33] VITALS: BP 114/58
[2018-07-02 07:12] LABS: HEMATOCRIT 30.6 % (37.0-47.0); HEMOGLOBIN 9.4 g/dl (12.0-16.0); MEAN CELL VOLUME 84.8 fL CALC (80.0-100.0); MEAN CORPUSCULAR HGB CONC 30.7 g/L CALC (32.0-36.0); RED BLOOD COUNT 3.61 mill/uL (4.20-5.60); RED CELL DISTRI WIDTH 15.1 % (11.5-15.5)
[2018-07-02 07:50] LABS: ANION GAP 14 (6-22 (CALC)); BUN 47 mg/dL (8-23); BUN/CREATININE RATIO 57 (12-20 (CALC)); CARBON DIOXIDE 30 mmol/l (22-30); CHLORIDE 102 mmol/l (95-108); CREATININE 0.8 mg/dL (0.5-1.0); GFR > 60 ML/MIN (>=60 (CALC)); GFR FOR AFR.AMER. > 60 ML/MIN (>=60 (CALC)); POTASSIUM 4.5 mmol/l (3.5-5.1); SODIUM 141 mmol/l (137-146)
[2018-07-02 09:32] VITALS: BP 137/70
[2018-07-02 11:16] VITALS: BP 137/62
[2018-07-02] MEDS ORDERED: DOXYCYCLINE100 MG PO (12:28)
[2018-07-02] MEDS ORDERED: IPRATROPIU0.5 MG/3 M IN (12:28)
[2018-07-02] MEDS ORDERED: PREDNISONE10 MG PO (12:28)
== END 2018-07-02 14:45 | DRG 193 ==
LOC: ED 15:45 → ED-I 16:28 → ED 16:28 → ED-I 18:19 → ED 18:46 → ICU 18:47 → MS2 07-01 17:17
PROVIDERS: Emergency Medicine; Internal Medicine Nephrology; ADMIT Internal Medicine; ATTEND Internal Medicine
PROC: 5A09457 Assistance with Respiratory Ventilation, 24-96 Consecutive Hours, Continuous Positive Airway Pressure (ICD-10-PCS; 2018-06-29)
PROC: 0T9B70Z Drainage of Bladder with Drainage Device, Via Natural or Artificial Opening (ICD-10-PCS; principal; 2018-06-30)
DX: J18.9 Pneumonia, unspecified organism (principal); G93.41 Metabolic encephalopathy; J96.22 Acute and chronic respiratory failure with hypercapnia; J96.21 Acute and chronic respiratory failure with hypoxia; E87.2 Acidosis; J44.0 Chronic obstructive pulmonary disease with (acute) lower respiratory infection; E11.65 Type 2 diabetes mellitus with hyperglycemia; I11.0 Hypertensive heart disease with heart failure; I50.9 Heart failure, unspecified; F03.90 Unspecified dementia, unspecified severity, without behavioral disturbance, psychotic disturbance, mood disturbance, and anxiety; E03.9 Hypothyroidism, unspecified; E78.5 Hyperlipidemia, unspecified; E11.42 Type 2 diabetes mellitus with diabetic polyneuropathy; D63.8 Anemia in other chronic diseases classified elsewhere; Y95 Nosocomial condition; Z79.4 Long term (current) use of insulin; Z91.81 History of falling
CPT/HCPCS: J1650